=== PATIENT | female | born 1965 | race Caucasian/White ===

== ENCOUNTER → 2016-09-19 | Outpatient (CLI) | payer BC | LOC: MC.RAD 07:00 | DX: D48.61 Neoplasm of uncertain behavior of right breast (principal) ==

== ENCOUNTER → 2016-09-24 | Outpatient (CLI) | payer BC | LOC: MC.RAD 13:20 | DX: N63 Unspecified lump in breast (principal); D24.2 Benign neoplasm of left breast ==

== ENCOUNTER → 2017-10-06 | Outpatient (CLI) | payer BC | LOC: MC.RAD 07:33 | DX: Z12.31 Encounter for screening mammogram for malignant neoplasm of breast (principal) ==

== ENCOUNTER → 2018-11-01 | Outpatient (CLI) | payer BC | LOC: MC.RAD 06:55 | DX: Z12.31 Encounter for screening mammogram for malignant neoplasm of breast (principal) ==

== ENCOUNTER → 2020-06-01 | Outpatient (CLI) | payer BC | LOC: MC.RAD 07:40 | DX: Z12.31 Encounter for screening mammogram for malignant neoplasm of breast (principal) ==